=== PATIENT | female | born 1980 | race Hispanic/Latino ===

== ENCOUNTER 2018-05-14 13:00 | Emergency (ER) | payer OTHER, SELFPAY ==
[2018-05-14 13:08] VITALS: BP 113/82; PULSE 66; RESP 15; TEMP 36.7; O2SAT 100; BMI 21.6
--- NOTE | 2018-05-14 13:09 | ED_ITS ---
HPI - Female Genitourinary <Solange Raymundo PA-C - Last Filed: 05/14/18 21:07> General Chief complaint: Urogenital-Female Stated complaint: RECENT INCISION FROM PROCEDURE SHE WANTS CHECKED Time Seen by Provider: 05/14/18 13:08 Source: patient Mode of arrival: ambulatory Limitations: no limitations History of Present Illness HPI Narrative: This healthy 37-year-old female comes in to have vaginal abscess rechecked. She states that she had biopsy done 3 weeks ago (this was done in [place]). She states that it started to get inflamed around where it was stitched , and she developed a golf ball size abscess. She was seen in an emergency room there 05/03. I&D was not done at that time, and she was started on clindamycin t.i.d.. 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 She states it was bleeding slightly Saturday after she flew home, otherwise has not been. Not draining at all. She denies any fever, swollen glands or other new concerns. Wondering if she needs to continue antibiotics. 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 Related Data Previous Rx's Medication Instructions Recorded clindamycin HCl 300 mg PO QID #16 cap 05/14/18 Allergies Allergy/AdvReac Type Severity Reaction Status Date / Time sulfamethoxazole Allergy Severe LUIS'S Verified 05/14/18 13:08 [From BACTRIM] TALISHA SYNDROME trimethoprim [From BACTRIM] Allergy Severe LUIS'S Verified 05/14/18 13:08 TALISHA SYNDROME Review of Systems <Solange Raymundo PA-C - Last Filed: 05/14/18 21:07> Review of Systems All systems reviewed & are unremarkable except as noted in HPI and below Exam <Solange Raymundo PA-C - Last Filed: 05/14/18 21:07> Narrative Exam Narrative: GENERAL APPEARANCE: Patient sitting comfortably, in no distress. LUNGS: Clear to auscultation bilaterally. HEART: Rate and rhythm regular without murmur, normal S1 and S2, no S3 or S4. LYMPH: No enlarged inguinal or femoral nodes : Right superior external labia majora bordering the mons there is a firm, nonfluctuant approximately 1 cm oblong indurated nodule. Minimally tender. Underlying and surrounding skin appears normal. Remainder of external genitalia normal Initial Vital Signs Initial Vital Signs: Vital Signs Temperature 98.1 F 05/14/18 13:08 Pulse Rate 66 05/14/18 13:08 Respiratory Rate 15 05/14/18 13:08 Blood Pressure 113/82 H 05/14/18 13:08 Pulse Oximetry 100 05/14/18 13:08 <Estuardo Case DO - Last Filed: 05/15/18 07:10> Initial Vital Signs Initial Vital Signs: Vital Signs Temperature 98.1 F 05/14/18 13:08 Pulse Rate 66 05/14/18 13:08 Respiratory Rate 15 05/14/18 13:08 Blood Pressure 113/82 H 05/14/18 13:08 Pulse Oximetry 100 05/14/18 13:08 Course <Solange Raymundo PA-C - Last Filed: 05/14/18 21:07> Vital Signs - 8 hr 05/14/18 13:08 Temperature 98.1 F Pulse Rate 66 Respiratory Rate 15 Blood Pressure 113/82 H Pulse Oximetry 100 <Estuardo Case DO - Last Filed: 05/15/18 07:10> Vital Signs - 8 hr 05/14/18 13:08 Temperature 98.1 F Pulse Rate 66 Respiratory Rate 15 Blood Pressure 113/82 H Pulse Oximetry 100 Discharge Plan Departure Patient Disposition: Home Clinical Impression: Abscess of vulva Discharge Date/Time: 05/14/18 14:02 Interventions: ED Discharge Assessment Last Done: 05/14/18 13:59 Instructions: Vulvar Abscess Activity Restrictions/Additional Instructions: Your abscess does not appear to need any incision or drainage today. The area may have developed some firmness, called induration, as it is healing. It is still enlarged, so we can try more antibiotics. I have given you a prescription for the same antibiotic you were on for another 4 days since you had good improvement on this. Please schedule an appointment to recheck with Dr. Watson next week and determine whether further treatment is needed depending upon your progress. You should return if you have any acutely worsening symptoms or new symptoms such as fever in the interim. Please be sure to use control while you are on antibiotics Prescriptions: New clindamycin HCl 300 mg capsule 300 mg PO QID Qty: 16 RF: 0 Referrals: Sonia Watson MD [Primary Care Provider] - <Estuardo Case DO - Last Filed: 05/15/18 07:10> Cosign ED Attending Mat Attestation: I was available for consultation during this patient's emergency department encounter
== END 2018-05-14 14:02 | disposition home or self-care (01) ==
PROVIDERS: Emergency Provider Internal Medicine; PCP Family Medicine
DX: N76.4 Abscess of vulva (principal)
CPT/HCPCS: 81025; 99282